=== PATIENT | female | born 1980 | race Caucasian/White ===

== ENCOUNTER 2017-01-10 17:24 | Emergency (ER) | payer MEDICAID ==
[~2017-01-10] VITALS: Ht 167.6 cm; Wt 60.0 kg
[~2017-01-10 17:24] MED LIST: IBUP-238 PO
[2017-01-10 17:26] VITALS: BP 122/69; PULSE 75; RESP 20; TEMP 98.3; O2SAT 100
--- NOTE | 2017-01-10 18:11 | PD ---
Physical Exam Time Seen by Provider: 18:08 Narrative 36yo F found out she is recently and having abd pain and cramping started 2 days ago. Sharp pain to LLQ. Denies vaginal bleeding or discharge. LMP guessing around November 04. +N w/o vomiting. Denies dysuria. Patient seen in triage. VS reviewed. Awaiting bed placement. Data Data Last Documented VS Vital Signs Date Time Temp Pulse Resp B/P Pulse Ox O2 Delivery O2 Flow Rate FiO2 01/10/17 17:26 98.3 75 20 122/69 100 Room Air MDM Supervised Visit with MAEGAN: Jessica Saleem Jan 10, 2017 18:11
[2017-01-10 18:39] LABS: BLOOD, URINE NEG (NEG); COMMENT (UR) CULT NOT INDICATED; CULTURE IF INDICATED CULT NOT INDICATED; GLUCOSE,URINE NEG (NEG); KETONE, URINE NEG (NEG); NITRITE,URINE NEG (NEG); PH, URINE 6.5 (5.0-8.5); SQUAMOUS EPITHELIAL CELL URINE 4 /hpf (0-5); URINE COLOR LIGHT-YELLOW (YELLW/STRAW)
== END 2017-01-10 20:38 | disposition left against medical advice (07) ==
LOC: NED 17:24
DX: O26.899 Other specified pregnancy related conditions, unspecified trimester (principal); R10.32 Left lower quadrant pain; R11.0 Nausea; Z53.21 Procedure and treatment not carried out due to patient leaving prior to being seen by health care provider
CPT/HCPCS: 81001; 99281